=== PATIENT | male | born 1995 | race Two or more races ===

== ENCOUNTER → 2021-07-08 | Outpatient (CLI) | payer MEDICAID | END | disposition home or self-care (01) | LOC: LAB 10:44 | PROVIDERS: ATTEND Internal Medicine Pulmonary Disease | DX: Z01.812 Encounter for preprocedural laboratory examination (principal); Z20.822 Contact with and (suspected) exposure to COVID-19 | CPT/HCPCS: 36415 ==

== ENCOUNTER 2023-06-23 01:23 | Emergency (ER) | payer MEDICAID ==
[~2023-06-23] VITALS: Ht 185.4 cm; Wt 145.5 kg
[2023-06-23 04:17] VITALS: BP 127/72; PULSE 93; RESP 18; TEMP 98.7; O2SAT 97
== END 2023-06-23 04:38 | disposition home or self-care (01) ==
LOC: ER 01:23
DX: M79.662 Pain in left lower leg (principal); I10 Essential (primary) hypertension; E11.9 Type 2 diabetes mellitus without complications
CPT/HCPCS: 36415; 85379